=== PATIENT | female | born 2000 | race American Indian/Alaskan Native ===

== ENCOUNTER 2018-12-15 18:17 | Emergency (ER) | payer SELFPAY ==
--- NOTE | 2018-12-15 18:30 | Event Note ---
ED Screening Note Date of service: 12/15/18 Time: 18:27 ED Screening Note: This is a 18 y.o. F. that presents to the ER with n/v and fatigue for 3 days. Patient have nexplanon implant. Denies chest pain, SOB, palpitations, abdominal pain, fever, or chills. LMP This initial assessment/diagnostic orders/clinical plan/treatment(s) is/are subject to change based on patients health status, clinical progression and re- assessment by fellow clinical providers in the ED. Further treatment and workup at subsequent clinical providers discretion. Patient/guardian urged not to elope from the ED as their condition may be serious if not clinically assessed and managed. Initial orders include: Labs
[2018-12-15 18:53] LABS: Bilirubin,Urine NEG (Negative); Blood,Urine NEG (Negative); Color,Urine Yellow (Yellow); Mucus,Urine 1+ /HPF; Protein,Urine <15 mg/dL mg/dL (Negative); Urobilinogen,Urine < 2.0 mg/dL (<2.0)
[2018-12-15 18:58] LABS: HCG Qualitative,Urine Negative (Negative)
[2018-12-15 19:31] LABS: Hematocrit 36.6 % (30.3-42.9); Hemoglobin 11.8 gm/dl (10.1-14.3); Mean Corpuscular HGB Conc 32 % (30-34); Mean Corpuscular Volume 78 fl (79-97); Platelet Count 277 K/mm3 (140-440); Red Cell Distribution Width 13.9 % (13.2-15.2)
[2018-12-15 19:49] LABS: BUN/Creatinine Ratio 17; Blood Urea Nitrogen 10 mg/dL (7-17); Calcium 9.2 mg/dL (8.4-10.2); Hemolysis Index 26
--- NOTE | 2018-12-15 22:39 | Emergency Department Report ---
Vomiting/Diarrhea - HPI Chief Complaint: Nausea/Vomiting/Diarrhea Stated Complaint: N/V/FATIGUE Time Seen by Provider: 12/15/18 18:26 Duration: 2 Days Nausea/Vomiting Severity: Moderate Diarrhea Severity: None Pain Location: Other (no abdominal pain) Pain Severity: None Symptoms: Yes Family w/ Similar Symptoms, No Watery Diarrhea, No Bloody diarrhea, No Fever, No Able to Tolerate Fluids, No Recent Unusual Foods, No Re cent Untreated Water, No Recent use of Antibiotics, No Contacts w/ Similar Symptoms, No Rash, No Hematuria, No Recent URI Symptoms Other History: This is a 18-year-old female here reported that she has been having nausea and vomiting for 2 days and she thinks she might be . Last menstrual period was 11/16/2018. She says she is able to tolerate fluids. Denies any diarrhea. Denies vomiting blood. She says she vomited twice today but she is having mostly nausea. She says she is able to keep liquids down. Denies any fever or chills or any vaginal bleeding or discharge. Denies any urinary burning, frequency or urgency. ED Review of Systems ROS: Stated complaint: N/V/FATIGUE Other details as noted in HPI Constitutional: denies: chills, fever ENT: denies: throat pain, congestion Respiratory: denies: cough, shortness of breath, wheezing Cardiovascular: denies: chest pain, palpitations, edema, syncope Gastrointestinal: nausea, vomiting. denies: abdominal pain, diarrhea, constipation, hematemesis, melena, hematochezia Genitourinary: denies: urgency, dysuria, frequency, hematuria, discharge, abnormal menses Musculoskeletal: denies: back pain, joint swelling, arthralgia, myalgia Skin: denies: rash Neurological: denies: headache, numbness, paresthesias, abnormal gait ED Past Medical Hx - Past Medical History Previous Medical History?: No - Surgical History Past Surgical History?: No - Family History Family history: hypertension - Social History Smoking Status: Never Smoker Substance Use Type: None - Medications Home Medications: Home Medications Medication Instructions Recorded Confirmed Last Taken Type Dicyclomine [Bentyl] 20 mg PO Q8H 3 Days #9 tablet 12/16/18 Unknown Rx Famotidine [Pepcid] 20 mg PO BID 6 Days #12 tablet 12/16/18 Unknown Rx Ondansetron [Zofran Odt] 4 mg PO Q8HR PRN #12 tab.rapdis 12/16/18 Unknown Rx Vomiting Diarrhea Exam - Exam General: Vital signs noted. No distress. Alert and acting appropriately. This is a 18-year-old female well-nourished well-developed in no acute distress. HEENT: Yes Moist Mucous Membranes, No Pharyngeal Erythema, No Pharyngeal Exudates, No Rhinorrhea, No Conjuctival Injection, No Frontal Tenderness, No Maxillary Tenderness Neck: No Adenopathy, No Rigidity Lungs: Yes Clear Lung Sounds, Yes Good Air Exchange, No Wheezes, No Stridor, No Cough, No Nasal Flaring, No Retractions Heart exam: Regular: Yes, Murmur: No, Tachycardia: No Abdomen: Tenderness: No, Peritoneal Signs: No, Distention: No, Hyperactive Bowel sounds: No Skin exam: Rash: No, Edema: No, Normal turgor: Yes (no rash or lesion. Clean dry and intact) Neurologic: Alert and oriented, no deficits. Musculoskeletal: Unremarkable. No cce. + 2 pulses in all extremities, no neurovascular compromise ED Course Vital Signs 12/15/18 18:27 Temperature 98.7 F Pulse Rate 68 Respiratory 18 Rate Blood Pressure 98/69 O2 Sat by Pulse 98 Oximetry - Reevaluation(s) Reevaluation #1: 12/16/18 00:17 Patient given IV fluids 1 L and emergency room. She was also given Zofran 4 mg IV. Labs review and stable with urinalysis stable and negative . CBC and BMP stable and test is negative. Patient is feeling better and able to tolerate fluids after 1 L of normal saline given. ED Medical Decision Making - Lab Data Result diagrams: 12/15/18 19:25 12/15/18 19:25 Lab Results 12/15/18 12/15/18 12/15/18 Range/Units 19:25 19:25 Unknown WBC 7.1 (4.5-11.0) K/mm3 RBC 4.70 (3.65-5.03) M/mm3 Hgb 11.8 (10.1-14.3) gm/dl Hct 36.6 (30.3-42.9) % MCV 78 L (79-97) fl MCH 25 L (28-32) pg MCHC 32 (30-34) % RDW 13.9 (13.2-15.2) % Plt Count 277 (140-440) K/mm3 Sodium 136 L (137-145) mmol/L Potassium 4.0 (3.6-5.0) mmol/L Chloride 101.1 (98-107) mmol/L Carbon Dioxide 23 (22-30) mmol/L Anion Gap 16 mmol/L BUN 10 (7-17) mg/dL Creatinine 0.6 L (0.7-1.2) mg/dL Estimated GFR > 60 ml/min BUN/Creatinine Ratio 17 % Glucose 86 (65-100) mg/dL Calcium 9.2 (8.4-10.2) mg/dL Urine Color Yellow (Yellow) Urine Turbidity Clear (Clear) Urine pH 6.0 (5.0-7.0) Ur Specific [place] 1.029 (1.003-1.030) Urine Protein <15 mg/dl (Negative) mg/dL Urine Glucose (UA) Neg (Negative) mg/dL Urine Ketones Neg (Negative) mg/dL Urine Blood Neg (Negative) Urine Nitrite Neg (Negative) Urine Bilirubin Neg (Negative) Urine Urobilinogen < 2.0 (<2.0) mg/dL Ur Leukocyte Esterase Neg (Negative) Urine WBC (Auto) 1.0 (0.0-6.0) /HPF Urine RBC (Auto) 3.0 (0.0-6.0) /HPF U Epithel Cells (Auto) 2.0 (0-13.0) /HPF Urine Mucus 1+ /HPF Urine HCG, Qual Negative (Negative) - Medical Decision Making This is a 18-year-old female here report nausea and vomiting over 2 days and thinking that she is . She is found to have mild nausea and vomiting without any abdominal pain. She was given IV fluid and Zofran emergency room and she is able to tolerate oral liquids. Her labs were stable to include CBC, BMP and urinalysis. test is negative. I discussed the patient results and diagnosis and treatment plan and she voiced understanding. Vital signs stable she is afebrile and she is not having any pain. Patient discharged home in stable condition with prescription for Bentyl and Zofran and to follow up with primary care physician and 2 days or to return to the emergency room for symptoms worsens. Critical care attestation.: If time is entered above; I have spent that time in minutes in the direct care of this critically ill patient, excluding procedure time. ED Disposition Clinical Impression: Nausea & vomiting Qualifiers: Vomiting type: unspecified Vomiting Intractability: non-intractable Qualified Code(s): R11.2 - Nausea with vomiting, unspecified Disposition: DC-01 TO HOME OR SELFCARE Is pt being admited?: No Does the pt Need Aspirin: No Condition: Stable Instructions: Acute Nausea and Vomiting (ED) Additional Instructions: Please keep hydrated with Gatorade and water at least 2-3 L daily Follow up with primary care physician in 2 days Take medication prescribed If condition worsens, return to the emergency room Referrals: PRIMARY CARE [Primary Care Provider] - 12/17/18 [facility] [Outside] - 12/17/18 Forms: Work/School Release Form(ED)
[2018-12-15] MEDS ORDERED: NACL 0.9% 1000 ML 1,000 ML ONE (22:50)
[2018-12-15] MEDS ORDERED: ZOFRAN IV ONE (22:55)
[2018-12-15] MEDS ORDERED: NACL 0.9% 1000 ML 1,000 ML IV ONE (22:55)
[2018-12-16 01:55] VITALS: BP 101/70
== END 2018-12-16 00:40 | disposition home or self-care (01) ==
LOC: ED 18:17
DX: R11.2 Nausea with vomiting, unspecified (principal); Z79.899 Other long term (current) drug therapy
CPT/HCPCS: 36415; 80048; 81001; 81025; 85027; 96361; 96374; 99283; J2405; J7030

== ENCOUNTER 2019-01-03 16:41 | Emergency (ER) | payer SELFPAY ==
--- NOTE | 2019-01-03 16:50 | Event Note ---
ED Screening Note ED Screening Note: vaginal bleeding x 2 weeks cycles typically last for a week had nexplanon placed for 3 years no abd pain no fever no urinary sx PMHx none no allergies to meds This initial assessment/diagnostic orders/clinical plan/treatment(s) is/are subject to change based on patients health status, clinical progression and re- assessment by fellow clinical providers in the ED. Further treatment and workup at subsequent clinical providers discretion. Patient/guardian urged not to elope from the ED as their condition may be serious if not clinically assessed and managed. Initial orders include: CBC
--- NOTE | 2019-01-03 18:11 | Emergency Department Report ---
<MARTIN OBREGON - Last Filed: 01/03/19 19:07> ED Female HPI - General Chief complaint: Vaginal Bleeding Stated complaint: 2WKS OF VAG BLEED Time Seen by Provider: 01/03/19 16:48 Source: patient Mode of arrival: Ambulatory Limitations: No Limitations - History of Present Illness Initial comments: 18 year old -Indian female presents to the ER with complaints of vaginal bleeding. Patient reports that her cycle has lasted 1 weeks longer. Patient denies abdominal pain no nausea no vomiting no diarrhea no dizziness to shortness of breath or chest pain. Patient does admit this is happened before. Patient reports that she is been placed on intra-abdominal control. Patient is 2 para 3. Last menstrual. Was 12/20/2018. Complaint: vaginal bleeding Onset/Timin -: week(s) Severity scale (0 -10): 0 Are you Now?: No Last Menstrual Period: 12/20/18 ([place]) EDC: 09/26/19 Associated Symptoms: denies other symptoms - Related Data Sexually active: Yes : 2 Para: 3 Previous Rx's Medication Instructions Recorded Last Taken Type Dicyclomine [Bentyl] 20 mg PO Q8H 3 Days #9 tablet 12/16/18 Unknown Rx Famotidine [Pepcid] 20 mg PO BID 6 Days #12 tablet 12/16/18 Unknown Rx Ondansetron [Zofran Odt] 4 mg PO Q8HR PRN #12 tab.rapdis 12/16/18 Unknown Rx Allergies Allergy/AdvReac Type Severity Reaction Status Date / Time No Known Allergies Allergy Verified 12/15/18 23:07 ED Review of Systems Comment: All other systems reviewed and negative Genitourinary: abnormal menses ED Past Medical Hx - Past Medical History Previous Medical History?: No - Surgical History Past Surgical History?: No - Social History Smoking Status: Never Smoker Substance Use Type: None - Medications Home Medications: Home Medications Medication Instructions Recorded Confirmed Last Taken Type Dicyclomine [Bentyl] 20 mg PO Q8H 3 Days #9 tablet 12/16/18 Unknown Rx Famotidine [Pepcid] 20 mg PO BID 6 Days #12 tablet 12/16/18 Unknown Rx Ondansetron [Zofran Odt] 4 mg PO Q8HR PRN #12 tab.rapdis 12/16/18 Unknown Rx ED Physical Exam - General Limitations: No Limitations General appearance: alert, in no apparent distress - Head Head exam: Present: atraumatic, normocephalic - Eye Eye exam: Present: normal appearance - ENT ENT exam: Present: mucous membranes moist - Neck Neck exam: Present: normal inspection - Respiratory Respiratory exam: Present: normal lung sounds bilaterally. Absent: respiratory distress - Cardiovascular Cardiovascular Exam: Present: regular rate, normal rhythm. Absent: systolic murmur, diastolic murmur, rubs, gallop - GI/Abdominal GI/Abdominal exam: Present: soft, normal bowel sounds - Extremities Exam Extremities exam: Present: normal inspection - Back Exam Back exam: Present: normal inspection - Neurological Exam Neurological exam: Present: alert, oriented X3 - Psychiatric Psychiatric exam: Present: normal affect, normal mood - Skin Skin exam: Present: warm, dry, intact, normal color. Absent: rash ED Medical Decision Making - Lab Data Result diagrams: 01/03/19 17:36 Laboratory Tests 01/03/19 17:36 WBC 5.8 RBC 4.40 Hgb 11.2 Hct 34.0 MCV 77 L MCH 25 L MCHC 33 RDW 14.4 Plt Count 236 Lymph % (Auto) 30.8 [place] % (Auto) 6.3 Eos % (Auto) 1.7 Baso % (Auto) 0.9 Lymph # 1.8 [place] # 0.4 Eos # 0.1 Baso # 0.0 Seg Neutrophils % 60.3 Seg Neutrophils # 3.5 - Medical Decision Making 18 year old -Indian female presents to the ER with complaints of vaginal bleeding. Patient reports that her cycle has lasted 1 weeks longer. Patient denies abdominal pain no nausea no vomiting no diarrhea no dizziness to shortness of breath or chest pain. Patient does admit this is happened before. Patient reports that she is been placed on intra-abdominal control. Patient is 2 para 3. Last menstrual. Was 12/20/2018. CBC hCG serum has been ordered. ED Disposition Clinical Impression: Abnormal bleeding in menstrual cycle Disposition: DC-01 TO HOME OR SELFCARE Is pt being admited?: No Does the pt Need Aspirin: No Condition: Stable Instructions: Menorrhagia (ED) Additional Instructions: Follow-up with [facility]. Lab work was stable. Referrals: PRIMARY CARE, [Primary Care Provider] - 3-5 Days [facility] [Provider Group] - 3-5 Days Forms: Work/School Release Form(ED) <CHRISTIAN JOSE - Last Filed: 01/03/19 21:38> ED Review of Systems ROS: Stated complaint: 2WKS OF VAG BLEED Other details as noted in HPI ED Course Vital Signs 01/03/19 16:49 Temperature 98.2 F Pulse Rate 62 Respiratory 18 Rate Blood Pressure 110/75 O2 Sat by Pulse 100 Oximetry ED Medical Decision Making - Lab Data Result diagrams: 01/03/19 17:36 Critical care attestation.: If time is entered above; I have spent that time in minutes in the direct care of this critically ill patient, excluding procedure time.
[2019-01-03 18:24] LABS: Basophils % (Auto) 0.9 % (0.0-1.8); Eosinophils # (Auto) 0.1 K/mm3 (0.0-0.4); Eosinophils % (Auto) 1.7 % (0.0-4.3); Hemoglobin 11.2 gm/dl (10.1-14.3); Lymphocytes # (Auto) 1.8 K/mm3 (1.2-5.4); Lymphocytes % (Auto) 30.8 % (13.4-35.0); Mean Corpuscular HGB Conc 33 % (30-34); Mean Corpuscular Volume 77 fl (79-97); Monocytes # (Auto) 0.4 K/mm3 (0.0-0.8); Monocytes % (Auto) 6.3 % (0.0-7.3); Platelet Count 236 K/mm3 (140-440); Red Cell Distribution Width 14.4 % (13.2-15.2)
[2019-01-04 00:53] VITALS: BP 112/70
== END 2019-01-03 21:55 | disposition home or self-care (01) ==
LOC: ED 16:41
DX: N93.9 Abnormal uterine and vaginal bleeding, unspecified (principal)
CPT/HCPCS: 36415; 85025

== ENCOUNTER 2020-04-21 22:47 | Emergency (ER) | payer SELFPAY ==
--- NOTE | 2020-04-21 23:48 | Emergency Department Report ---
ED Female HPI - General Chief complaint: Urogenital-Female Stated complaint: VAGINAL DISCHARGE Time Seen by Provider: 04/21/20 23:37 Source: patient Mode of arrival: Ambulatory Limitations: No Limitations - History of Present Illness Initial comments: 20-year-old man who was at emergency department complaining of having bacterial vaginosis and seeking treatment. States she has no worries of an STD or yeast infection and that she 100% knows this is bacterial vaginosis and only wants the medication to get rid of it MD Complaint: vaginal discharge Consistency: constant Improves with: none Worsens with: none Are you Now?: No Associated Symptoms: vaginal discharge. denies: abdominal pain, nausea/vomiting, headaches, loss of appetite, hematuria, shortness of breath, syncope, weakness - Related Data Previous Rx's Medication Instructions Recorded Last Taken Type Dicyclomine [Bentyl] 20 mg PO Q8H 3 Days #9 tablet 12/16/18 Unknown Rx Famotidine [Pepcid] 20 mg PO BID 6 Days #12 tablet 12/16/18 Unknown Rx Ondansetron [Zofran Odt] 4 mg PO Q8HR PRN #12 tab.rapdis 12/16/18 Unknown Rx metroNIDAZOLE [Flagyl] 2,000 mg PO ONCE #4 tablet 04/21/20 Unknown Rx Allergies Allergy/AdvReac Type Severity Reaction Status Date / Time No Known Allergies Allergy Verified 09/04/19 11:02 ED Review of Systems ROS: Stated complaint: VAGINAL DISCHARGE Other details as noted in HPI Comment: All other systems reviewed and negative ED Past Medical Hx - Past Medical History Previous Medical History?: No - Surgical History Past Surgical History?: Yes Additional Surgical History: CSection - Social History Smoking Status: Never Smoker Substance Use Type: None - Medications Home Medications: Home Medications Medication Instructions Recorded Confirmed Last Taken Type Dicyclomine [Bentyl] 20 mg PO Q8H 3 Days #9 tablet 12/16/18 Unknown Rx Famotidine [Pepcid] 20 mg PO BID 6 Days #12 tablet 12/16/18 Unknown Rx Ondansetron [Zofran Odt] 4 mg PO Q8HR PRN #12 tab.rapdis 12/16/18 Unknown Rx metroNIDAZOLE [Flagyl] 2,000 mg PO ONCE #4 tablet 04/21/20 Unknown Rx ED Physical Exam - General Limitations: No Limitations General appearance: alert, in no apparent distress - Head Head exam: Present: atraumatic, normocephalic - Eye Eye exam: Present: normal appearance, PERRL, EOMI Pupils: Present: normal accommodation - ENT ENT exam: Present: mucous membranes moist - Neck Neck exam: Present: normal inspection - Respiratory Respiratory exam: Present: normal lung sounds bilaterally. Absent: respiratory distress - Cardiovascular Cardiovascular Exam: Present: regular rate, normal rhythm. Absent: systolic murmur, diastolic murmur, rubs, gallop - GI/Abdominal GI/Abdominal exam: Present: soft, normal bowel sounds - Extremities Exam Extremities exam: Present: normal inspection - Back Exam Back exam: Present: normal inspection - Neurological Exam Neurological exam: Present: alert, oriented X3 - Psychiatric Psychiatric exam: Present: normal affect, normal mood - Skin Skin exam: Present: warm, dry, intact, normal color. Absent: rash Critical care attestation.: If time is entered above; I have spent that time in minutes in the direct care of this critically ill patient, excluding procedure time. ED Disposition Clinical Impression: Vaginitis Disposition: DC-01 TO HOME OR SELFCARE Is pt being admited?: No Does the pt Need Aspirin: No Condition: Stable Instructions: Bacterial Vaginosis, [id number], Vaginitis, [id number] Prescriptions: metroNIDAZOLE [Flagyl] 2,000 mg PO ONCE #4 tablet Referrals: [facility] [Provider Group] - 3-5 Days
== END 2020-04-22 00:10 | disposition home or self-care (01) ==
LOC: ED 22:47
DX: N76.0 Acute vaginitis (principal); Z98.890 Other specified postprocedural states; Z79.899 Other long term (current) drug therapy
CPT/HCPCS: 99281

== ENCOUNTER 2021-10-25 10:10 | Emergency (ER) | payer MEDICAID ==
--- NOTE | 2021-10-25 10:41 | Emergency Department Report ---
ED Dysuria HPI - HPI Stated Complaint: VAGINAL IRRITATION/DISCHARGE Time Seen by Provider: 10/25/21 10:40 Duration: 2 Days Symptoms: Dysuria: Yes, Frequency: No, Suprapubic Pain: No, Flank Pain: No, Fever: No, Hematuria: No, Abdominal Pain: No, Previous UTI's: Yes Other History: 21 yo comes to ER with painful urinatlon. No n/v/d. No back pain. No abd pain. No fever or chills. Pt vag dc. Pt has hx of UTI and is concerned she has one now. ED Review of Systems ROS: Stated complaint: VAGINAL IRRITATION/DISCHARGE Other details as noted in HPI Comment: All other systems reviewed and negative ED Past Medical Hx - Past Medical History Previous Medical History?: No - Surgical History Past Surgical History?: Yes Additional Surgical History: CSection - Family History Family history: no significant - Social History Smoking Status: Never Smoker Substance Use Type: None - Medications Home Medications: Home Medications Medication Instructions Recorded Confirmed Last Taken Type metroNIDAZOLE [Flagyl] 2,000 mg PO ONCE #4 tablet 04/21/20 Unknown Rx Sulfamethoxazole/Trimethoprim 1 each PO BID #10 tablet 10/25/21 Unknown Rx [Bactrim DS TAB] Dysuria Exam - Exam General: Vital signs noted. No distress. Alert and acting appropriately. Exam: Yes Moist Mucous Membranes, No CVA Tenderness, No Abdominal Tenderness, No Rigidity or Guarding ED Medical Decision Making - Medical Decision Making Lab Results 10/25/21 Range/Units Unknown Urine Color Yellow (Yellow) Urine Turbidity Clear (Clear) Urine pH 6.0 (5.0-7.0) Ur Specific [place] 1.025 (1.003-1.030) Urine Protein <30 mg dl (Negative) mg/dL Urine Glucose (UA) Negative (Negative) mg/dL Urine Ketones Negative (Negative) mg/dL Urine Blood Trace (Negative) Urine Nitrite Negative (Negative) Ur Reducing Substances Not Reportable Urine Bilirubin Negative (Negative) Urine Ictotest Not Reportable Urine Urobilinogen < 2.0 (<2.0) mg/dL Ur Leukocyte Esterase Trace (Negative) Urine WBC (Auto) 29.0 H (0.0-6.0) /HPF Urine RBC (Auto) 13.0 (0.0-6.0) /HPF U Epithel Cells (Auto) 19.0 H (0-13.0) /HPF Urine Mucus 3+ /HPF Urine HCG, Qual Negative (Negative) Vital Signs 10/25/21 10/25/21 10:38 17:58 Temperature 98.9 F Pulse Rate 67 67 Respiratory 14 14 Rate Blood Pressure 109/59 Blood Pressure 109/59 [Right] O2 Sat by Pulse 98 98 Oximetry ua noted mediated with rocephin IM in ER dc home on bactrum culture pending -we should call her if antibiotic needs changed exam unremarkable no fever. normal VS. ambulatory and taking po pt being dc home with dc paln of care including diet, meds, activity and follow up. She verbalizes understanding of plan of care. - Differential Diagnosis ro uti/preg/pylo Critical care attestation.: If time is entered above; I have spent that time in minutes in the direct care of this critically ill patient, excluding procedure time. ED Disposition Clinical Impression: UTI (urinary tract infection) Qualifiers: Urinary tract infection type: site unspecified Hematuria presence: without hematuria Qualified Code(s): N39.0 - Urinary tract infection, site not specified Disposition: 01 HOME / SELF CARE / HOMELESS Is pt being admited?: No Does the pt Need Aspirin: No Condition: Stable Instructions: Urinary Tract Infection, Adult Additional Instructions: stay well hydrated with water med as given to you today follow up with pcp and or obgyn mulugeta referrrals below motrin or tylenol for pain Prescriptions: Sulfamethoxazole/Trimethoprim [Bactrim DS TAB] 1 each PO BID #10 tablet Referrals: SANTA CHANG MD [Primary Care Provider] - 3-5 Days EDILBERTO GUZMAN MD [Staff Physician] - 3-5 Days Forms: Work/School Release Form(ED) Time of Disposition: 14:55
[2021-10-25 10:43] VITALS: BP 109/59
[2021-10-25 13:54] LABS: HCG Qualitative,Urine Negative (Negative)
[2021-10-25 14:02] LABS: Mucus,Urine 3+ /HPF
[2021-10-25 14:06] LABS: Color,Urine Yellow (Yellow)
[2021-10-25 14:07] LABS: Bilirubin,Urine Negative (Negative); Blood,Urine Trace (Negative); Protein,Urine <30 mg dL mg/dL (Negative)
[2021-10-25 14:08] LABS: Urobilinogen,Urine < 2.0 mg/dL (<2.0)
[2021-10-25] MEDS ORDERED: LIDOCAINE-MPF (1%) 10 MG/1 ML VIAL 5 ML INFILTRATI ONE ×2 (14:53→17:44)
== END 2021-10-25 17:58 | disposition home or self-care (01) ==
LOC: ED 10:10
DX: N39.0 Urinary tract infection, site not specified (principal)
CPT/HCPCS: 81001; 81025; 87086; 96372; 99283; J0696; J3490

== ENCOUNTER 2021-11-03 07:44 | Emergency (ER) | payer MEDICAID ==
--- NOTE | 2021-11-03 08:40 | Emergency Department Report ---
ED Female HPI - General Chief complaint: Urogenital-Female Stated complaint: DISCHARGE Time Seen by Provider: 11/03/21 08:38 Source: patient Mode of arrival: Ambulatory Limitations: No Limitations - History of Present Illness Initial comments: Patient comes to the emergency room complaining of vaginal discharge. She was recently treated for UTI. She states that she gets BV often and that she always comes here to get tested for BV. I reviewed the EMR and she has had numerous visits to the ER for vaginal discharge none resulting in STD or micro testing. Have explained to her that we do not do routine testing in the emergency room. She has no fever or chills. No abdominal pain. No back pain. Her exam is unremarkable. Her vital signs are normal. I explained to her that I am going to refer her to [facility] for appropriate Pap smears and gynecological testing. Last menstrual cycle 2 weeks ago. Complaint: vaginal bleeding -: Gradual, month(s) Consistency: constant Improves with: none Worsens with: none Are you Now?: No Associated Symptoms: denies other symptoms, vaginal discharge. denies: vaginal bleeding, abdominal pain, nausea/vomiting, fever/chills, headaches, loss of appetite, dysuria, hematuria, rash, seizure, shortness of breath, syncope, weakness - Related Data Sexually active: Yes Allergies Allergy/AdvReac Type Severity Reaction Status Date / Time No Known Allergies Allergy Verified 11/03/21 08:26 ED Review of Systems ROS: Stated complaint: DISCHARGE Other details as noted in HPI Comment: All other systems reviewed and negative ED Past Medical Hx - Past Medical History Previous Medical History?: No - Surgical History Past Surgical History?: Yes Additional Surgical History: CSection - Family History Family history: no significant - Social History Smoking Status: Never Smoker Substance Use Type: None ED Physical Exam - General Limitations: No Limitations General appearance: alert, in no apparent distress - Head Head exam: Present: atraumatic, normocephalic - Eye Eye exam: Present: normal appearance - ENT ENT exam: Present: mucous membranes moist - Neck Neck exam: Present: normal inspection - Respiratory Respiratory exam: Present: normal lung sounds bilaterally. Absent: respiratory distress - Cardiovascular Cardiovascular Exam: Present: regular rate, normal rhythm. Absent: systolic murmur, diastolic murmur, rubs, gallop - GI/Abdominal GI/Abdominal exam: Present: soft, normal bowel sounds - Extremities Exam Extremities exam: Present: normal inspection - Back Exam Back exam: Present: normal inspection - Neurological Exam Neurological exam: Present: alert, oriented X3 - Psychiatric Psychiatric exam: Present: normal affect, normal mood - Skin Skin exam: Present: warm, dry, intact, normal color. Absent: rash ED Medical Decision Making - Medical Decision Making referral to obgyn per pt request for she threw the other one away normal VS per manual documentation of RN - Differential Diagnosis a/c bv Critical care attestation.: If time is entered above; I have spent that time in minutes in the direct care of this critically ill patient, excluding procedure time. ED Disposition Clinical Impression: Vaginal discharge Disposition: 07 LEFT WITHOUT BEING SEEN Is pt being admited?: No Does the pt Need Aspirin: No Condition: Stable Referrals: EDILBERTO GUZMAN MD [Staff Physician] - 3-5 Days Forms: Work/School Release Form(ED) Time of Disposition: 08:40
[2021-11-03 08:54] VITALS: BP 112/78
== END 2021-11-03 17:30 | disposition left against medical advice (07) ==
LOC: ED 07:44
DX: N89.8 Other specified noninflammatory disorders of vagina (principal)
CPT/HCPCS: 99281